=== PATIENT | female | born 1980 | race Caucasian/White ===

== ENCOUNTER → 2020-11-07 12:24 | Outpatient (CLI) | payer OTHER, SELFPAY ==
[2018-04-02 13:29] VITALS: BMI 26.8
[2020-11-07 13:15] LABS: hCG Titer Quant., Serum 115 mIU/mL (1-3)
== END ==
PROVIDERS: PCP Family Medicine; Referring Provider Obstetrics & Gynecology; Visit Provider Obstetrics & Gynecology
DX: N91.2 Amenorrhea, unspecified (principal)
CPT/HCPCS: 36415; 84702

== ENCOUNTER → 2020-11-09 12:32 | Outpatient (CLI) | payer OTHER, SELFPAY ==
[2018-04-02 13:29] VITALS: BMI 26.8
[2020-11-09 13:31] LABS: hCG Titer Quant., Serum 42 mIU/mL (1-3)
== END ==
PROVIDERS: PCP Family Medicine; Referring Provider Obstetrics & Gynecology; Visit Provider Obstetrics & Gynecology
DX: N91.2 Amenorrhea, unspecified (principal)
CPT/HCPCS: 36415; 84702

== ENCOUNTER → 2020-11-11 10:44 | Outpatient (CLI) | payer OTHER, SELFPAY ==
[2018-04-02 13:29] VITALS: BMI 26.8
[2020-11-11 11:27] LABS: hCG Titer Quant., Serum 18 mIU/mL (1-3)
== END ==
PROVIDERS: PCP Family Medicine; Referring Provider Obstetrics & Gynecology; Visit Provider Obstetrics & Gynecology
DX: O02.1 Missed abortion (principal)
CPT/HCPCS: 36415; 84702

== ENCOUNTER → 2022-07-11 | Outpatient (CLI) | payer OTHER, SELFPAY ==
[2022-07-11 11:16] LABS: Absolute Lymphocyte Count 1.35 X10^3/uL (0.83-4.51); Absolute Neutrophil Count 4.1 X10^3/uL (2.0-7.7); Basophil# 0.06 X10^3/uL; Eosinophil# 0.08 X10^3/uL; Eosinophils% 1.3 % (0-5); Hematocrit 41.2 % (37-47); Hemoglobin 13.2 g/dL (12.0-15.0); Lymphocyte # 1.35 X10^3/ul (0.83-4.51); Lymphocyte % 21.8 % (19-41); Mean Corpuscular Hgb 29.3 pg (27.0-32.0); Mean Corpuscular Volume 91.6 fL (81-99); Mean Platelet Vol. 9.8 fl (6.2-12.0); Monocyte# 0.54 X10^3/uL; Monocyte% 8.7 % (0-10); NRBC Flagged by Analyzer 0 % (0-5); Neutrophil # 4.14 X10^3/uL (2.7-7.7); Neutrophil % 66.9 % (47-70); Platelet Count 318 K/mm3 (150-450); RBC Distribution Width SD 44.1 fl (35.1-43.9); White Blood Count 6.2 K/mm3 (4.4-11.0)
[2022-07-11 11:49] LABS: Thyroid Stim Hormone (TSH) 3.59 uIU/mL (0.358-3.74)
== END | disposition home or self-care (01) ==
LOC: PAVLAB 10:47
PROVIDERS: PCP Family Medicine; Referring Provider Advanced Practice Midwife; Visit Provider Advanced Practice Midwife
DX: N92.1 Excessive and frequent menstruation with irregular cycle (principal)
CPT/HCPCS: 36415; 83036; 84443; 85025

== ENCOUNTER → 2022-07-16 | Outpatient (CLI) | payer OTHER, SELFPAY ==
--- NOTE | 2022-07-16 08:02 | US_ITS ---
STUDY: ULTRASOUND OF THE FEMALE PELVIS - COMPLETE REASON FOR EXAM: Female, 41 years old. Irregular menstrual bleeding LMP: July 16, 2022. TECHNIQUE: Transvaginal TECHNICAL QUALITY: Adequate. COMPARISON: None. FINDINGS: The uterus is anteverted and is in a midline position. The uterus measures 10.3 cm x 6.4 cm x 4.1 cm. There is a Nabothian cyst of the cervix. The endometrium measures 9.4 mm in thickness, and is hyperechoic. There are numerous small cysts in the endometrium. 2 uterine fibroids are seen. The larger measures 1.8 sign by 1.5 sign by 1.4 cm. This is pedunculated posteriorly. I.U.D. - The patient does not have an I.U.D. The right ovary is visualized. The right ovary measures 3.3 cm x 2.7 cm x 2.1 cm. There is no right ovarian cyst or ovarian mass. There is no visualized right adnexal mass or complex lesion. There is normal arterial and normal venous vascularity. The left ovary is visualized. The left ovary measures 4 cm x 3.6 x 2.8 cm. There is a 2.8 sided by 2.4 sign by 2.5 cm left ovarian cyst. There is no visualized left adnexal mass or complex lesion. There is normal arterial and normal venous vascularity. There is no fluid in the cul-de-sac. US/Transvaginal Non- IMPRESSION: Enlarged fibroid uterus. 2.8 cm x 2.4 cm by 2.5 cm left ovarian cyst. Electronically Signed: Jaron Epperson MD at 14:47 EDT ,
[2022-07-16 09:28] LABS: Cholesterol 180 mg/dL (200); High Density Lipoprotein 58 mg/dL; Triglycerides 125 mg/dL; Very Low Density Lipoprotein 25 mg/dL (5-40)
== END | disposition home or self-care (01) ==
PROVIDERS: PCP Family Medicine; Referring Provider Advanced Practice Midwife; Visit Provider Advanced Practice Midwife
DX: N92.1 Excessive and frequent menstruation with irregular cycle (principal)
CPT/HCPCS: 36415; 76830; 80061

== ENCOUNTER → 2022-08-13 | Outpatient (CLI) | payer OTHER, SELFPAY ==
--- NOTE | 2022-08-13 15:00 | EMB_PTH ---
PATIENT: YUMIKO COLON LOC: [facility] U#:[id number] AGE/SX: 41/F ROOM: RE08/13/[address]: Dr. Vivien Grajeda MD : 1980 BED: DIS: 08/13/2022 SPEC #: [id number] RECD: 08/13/22 16:41 STATUS: KATY REQ #: [id number] JIM: 08/13/22 15:[address]: Vivien Grajeda DEPT: SURGICAL PATHOLOGY RECD BY: Jody Chavez ENTERED: 08/14/22 07:54 SP TYPE: ENDOM BX/C OT DR: Dr. Juan Luis Thornton MD Tissues: Endometrium, NOS Procedures: Surgery Specimen Level IV HEADER OPERATION: Endometrial biopsy PRE-OP DIAGNOSIS: Abnormal uterine bleeding TISSUE SUBMITTED: Endometrial tissue MICROSCOPIC DIAGNOSIS Endometrial biopsy: Proliferative endometrium with focal glandular breakdown. SJ:iván 08/15/2022 MICROSCOPIC DESCRIPTION Slides are reviewed. GROSS DESCRIPTION Received is one container labeled with the patient's name and not further designated. The specimen consists of multiple irregular fragments of pink-werner soft tissue that in aggregate measure 1.5 x 1.0 x 0.1 cm. The specimen is totally submitted in one cassette. / AM:iván 08/14/2022 TC:5 CPT: 32583
== END | disposition home or self-care (01) ==
LOC: LABSPEC 16:48
PROVIDERS: PCP Family Medicine; Referring Provider Obstetrics & Gynecology; Visit Provider Obstetrics & Gynecology
DX: N93.9 Abnormal uterine and vaginal bleeding, unspecified (principal)
CPT/HCPCS: 88305

== ENCOUNTER → 2025-01-09 | Outpatient (CLI) | payer OTHER, SELFPAY ==
--- OUTSIDE RECORDS SUMMARY | 2024-12-03 17:08 | XMS RPT_ITS ---
Author Name Auto Generated Organization OHIP Care Team Providers Care Insurance Claims Adjuster Name Role Phone DONAVON LAWRENCE Attending Unavailable FURNESS, ABDIFATAH T Primary Care Unavailable FURNESS, ABDIFATAH T Attending Unavailable FURNESS, ABDIFATAH T Primary Care Unavailable PRABHA MATHIS Referring Unavailable FURNESS, ABDIFATAH T Primary Care Unavailable FURNESS, ABDIFATAH T Primary Care Unavailable NGUYENHAUSENHARJINDERPRABHA Attending Unavailable NAIMA JIANG Attending Unavailable FURNESS, ABDIFATAH T Referring Unavailable FURNESS, ABDIFATAH T Primary Care Unavailable NAIMA JIANG Referring Unavailable FURNESS, ABDIFATAH T Primary Care Unavailable PAULA BRANDT Referring Unavailable FURNESS, ABDIFATAH T Primary Care Unavailable PROBLEMS DATE TYPE CONDITION / CODE ATTENDING STATUS [facility] 12/03/2024 Admitting Diagnosis Migraine, unspecified, not intractable, without status migrainosus / G43.909(ICD-10) NA [facility] 12/03/2024 Admitting Diagnosis Chronic migraine with aura, intractable, without status migrainosus / G43.E19(ICD-10) [facility] 11/25/2024 Admitting Diagnosis Chronic migraine without aura, intractable, without status migrainosus / G43.719(ICD-10) [facility] 11/25/2024 Admitting Diagnosis Obstructive sleep apnea (adult) (pediatric) / G47.33(ICD-10) [facility] 11/25/2024 Admitting Diagnosis Hypersomnia, unspecified / G47.10(ICD-10) [facility] 11/25/2024 Admitting Diagnosis Reaction to severe stress, unspecified / F43.9(ICD-10) [facility] 06/27/2024 Active Migraine without aura and without status migrainosus, not intractable / G43.009(ICD-10) [facility] 05/22/2024 Active Vertigo / R42(ICD-10) PRABHA MATHIS [facility] 03/11/2023 Admitting Diagnosis Migraine without aura, not intractable, without status migrainosus / G43.009(ICD-10) [facility] 01/15/2024 Admitting Diagnosis Acute atopic conjunctivitis, bilateral / H10.13(ICD-10) [facility] 01/15/2024 Admitting Diagnosis Rash and other nonspecific skin eruption / R21(ICD-10) [facility] 01/15/2024 Admitting Diagnosis Rosacea, unspecified / L71.9(ICD-10) [facility] PROCEDURES No Procedure Records Found RESULTS XR EYE FOREIGN BODY Observed: 12/03/2024 5:08 PM Status: F Source: [facility] Interpreted By: Wayne Cai, STUDY: XR EYE FOREIGN BODY; ; 12/03/2024 5:10 pm INDICATION: Signs/Symptoms:MRI CLEARANCE. ,G43.909 Migraine, unspecified, not intractable, without status migrainosus COMPARISON: None. ACCESSION NUMBER(S): [id number] ORDERING CLINICIAN: PAULA BRANDT FINDINGS: No metallic foreign body is seen in the orbits. IMPRESSION: No metallic foreign body is seen in either orbit. MACRO: None Signed by: Robyn Cai 12/03/2024 5:28 PM Dictation workstation: [id number] MR BRAIN W AND WO IV CONTRAST Observed: 12/03/2024 4:38 PM Status: F Source: [facility] Interpreted By: Claudia Bunn, STUDY: MR BRAIN W AND WO IV CONTRAST; 12/03/2024 5:54 pm INDICATION: Signs/Symptoms:migraines. ,G43.E19 Chronic migraine with aura, intractable, without status migrainosus COMPARISON: None. ACCESSION NUMBER(S): [id number] ORDERING CLINICIAN: NAIMA JIANG TECHNIQUE: The brain was studied in the sagittal, axial and coronal planes utilizing FLAIR, T1 and T2 weighted images. Following intravenous injection of gadolinium contrast, T1 weighted fat suppressed multiplanar images were also performed. FINDINGS: There is a normal-size ventricular system. There is no evidence of intracranial mass or extra-axial collection. The skull base, paranasal sinuses and orbital structures are unremarkable. Diffusion weighted images and associated ADC maps of the brain were unremarkable. There is no evidence of diffusion restriction to suggest the presence of acute infarction. Gradient echo T2 weighted images fail to demonstrate hemosiderin deposition or other evidence of hemorrhage. Following intravenous injection of there is no abnormal enhancement. There is normal contrast opacification of the dural venous sinuses. IMPRESSION: There is no evidence of mass, infarction or hemorrhage. MACRO: none Signed by: Carroll Bunn 12/04/2024 1:15 PM Dictation workstation: [id number] COMP METAB 2000 PNL SERPL Collected: 8:51 AM Status: F Source: [facility] Order Comment: Specimen Type : BLOOD SPECIMEN Ordering Facility: [facility] Address: [address] [place] [address] TYPE CODE TESTS RESULT OUT OF RANGE REFERENCE UNITS LAB 2885-2(LOINC) Prot SerPl-mCnc 6.8 6.3-8.0 g/dL LAB 1751-7(LOINC) Albumin SerPl-mCnc 4.0 3.9-4.9 g/dL LAB 05334-6(LOINC) Calcium SerPl-mCnc 9.0 8.5-10.2 mg/dL LAB 1975-2(LOINC) Bilirub SerPl-mCnc 0.4 0.2-1.3 mg/dL LAB 6768-6(LOINC) ALP SerPl-cCnc 61 34-123 U/L LAB 20859-8(LOINC) AST SerPl w P-5'-P-cCnc 15 13-35 U/L LAB 1743-4(INC) ALT SerPl w P-5'-P-cCnc 11 7-38 U/L LAB 2345-7(INC) Glucose SerPl-mCnc 91 74-99 mg/dL Result Comment: The [place] [employer] (ADA) provides guidance for cutoff values for fasting glucose and random glucose. The ADA defines fasting as no caloric intake for at least 8 hours. Fasting plasma glucose results between 100 to 125 mg/dL indicate increased risk for diabetes (prediabetes). Fasting plasma glucose results greater than or equal to 126 mg/dL meet the criteria for diagnosis of diabetes. In the absence of unequivocal hyperglycemia, results should be confirmed by repeat testing. In a patient with classic symptoms of hyperglycemia or hyperglycemic crisis, random plasma glucose results greater than or equal to 200 mg/dL meet the criteria for diagnosis of diabetes. Reference: Standards of Medical Care in Diabetes 2016, [place] [employer]. Diabetes Care. 2016.39(Suppl 1). LAB 3094-0(LOINC) BUN SerPl-mCnc 10 7-21 mg/ dL LAB 2160-0(LOINC) Creat SerPl-mCnc 0.75 0.58-0.96 mg/dL LAB 2951-2(LOINC) Sodium SerPl-sCnc 140 136-144 mmol/L LAB 2823-3(LOINC) Potassium SerPl-sCnc 4.4 3.7-5.1 mmol/L LAB 2075-0(LOINC) Chloride SerPl-sCnc 106 98-107 mmol/L LAB 2028-9(LOINC) CO2 SerPl-sCnc 23 22-30 mmo l/L LAB 98153-7(LOINC) Anion Gap SerPl-sCnc 11 8-15 mmol/L LAB 27771-4(LOINC) Creatinine + eGFR Pnl SerPlBld 101 >=60 mL/min/1. 73m??? Result Comment: Estimated Gl omerular Filtration Rate (eGFR) is calculated using the 2020 CKD-EPI creatinine equation. This equation utilizes serum creatinine, sex, and age as parameters. The creatinine assay has traceable calibration to isotope dilution-mass spectrometry. Refer to KDIGO guidelines for clinical interpretation. In patients with unstable renal function, e.g. those with acute kidney injury, the eGFR may not accurately reflect actual GFR. Performed By: #### [id number] # ### [facility] CLIA [id number] [address] [place] [address] STATES OF [facility] CBC W AUTO DIFF BLD Collected: 06/27/2024 8:[address] atus: F Source: [facility] Order Comment: Specimen Type : BLOOD SPECIMEN Ordering Facility: [facility] Address: [address] [place] [address] TYPE CODE TESTS RESULT OUT OF RANGE REFERENCE UNITS LAB 6690-2(LOINC) WBC # Bld Auto 7.48 3.70-11.00 k/uL LAB 789-8(LOINC) RBC # Bld Auto 4.35 3.90-5.20 m/ uL LAB 718-7(LOINC) Hgb Bld-mCnc 11.9 11.5-15.5 g/dL LAB 4544-3(LOINC) Hct VFr Bld Auto 38.4 36.0-46.0 % LAB 787-2(LOINC) MCV RBC Auto 88.3 80.0-100.0 fL LAB 785-6(LOINC) MCH RBC Qn Auto 27.4 26.0-34.0 p g LAB 786-4(LOINC) MCHC RBC Auto-mCnc 31.0 30.5-36.0 g/dL LAB 15283-4(LOINC) RDW RBC-Rto 14.1 11.5-15.0 % LAB 777-3(LOINC) Platelet # Bld Auto 345 150-400 k/uL LAB 93444-9(LOINC) PMV Bld Auto 10.0 9.0-12.7 fL LAB 770-8(LOINC) Neutrophils/leuk NFr Bld Auto 62.4 % LAB 751-8(LOINC) Neutrophils # Bl d Auto 4.67 1.45-7.50 k/uL LAB 736-9(LOINC) Lymphocytes/leuk NFr Bld Auto 24.5 % LAB 731-0(LOINC) Lymphocytes # Bl d Auto 1.83 1.00-4.00 k/uL LAB 5905-5(LOINC) Monocytes/leuk NFr Bld Auto 10.8 % LAB 742-7(LOINC) Monocytes # Bld Auto 0.81 <0.87 k/uL LAB 713-8(LOINC) Eosinophil/leuk NFr Bld Auto 1.9 % LAB 711-2(LOINC) Eosinophil # Bld Auto 0.14 <0.46 k/uL LAB 706-2(LOINC) Basophils/leuk NFr Bld Auto 0.4 % LAB 704-7(LOINC) Basophils # Bld Auto 0.03 <0.11 k/uL LAB 69797-2(LOINC) Imm Granulocytes/leuk NFr Bld Auto 0.0 % LAB 67064-9(LOINC) Imm Granulocytes # Bld Auto <0.03 <0.10 k/uL LAB 69814-6(LOINC) nRBC/100 WBC Bld-Rto LAB 771-6(LOINC) nRBC # Bld Auto LAB 76967-5(LOINC) Differential method Bld Auto Performed By: #### [id number] # ### [facility] CLIA [id number] [address] [place] [address] PROGRESS Observed: 05/22/2024 11:30 AM Status: COMPLETED Source: [facility] HNO ID: [id number] Author: PRABHA MATHIS APRN.MARKER ASSEMBLER Service: ? Author Type: Nurse Practitioner Type: Progress Notes Filed: 05/22/2024 15:31 Note Text: [facility] Follow-up Visit Follow-up note This visit was conducted via virtual platform. I have communicated my name and active licensure. The patient's identity and physical location were verified at the time of this visit. Either the patient or their legal senior account representative has been informed of the risks and benefits of -- and alternatives to -- treatment through a remote evaluation and consents to proceed with the evaluation remotely. May 22, 2024 HPI: Ms. Colon presents today for a follow-up visit. Per her previous visit on 10/23/23: R42 Vertigo (primary encounter diagnosis) G43.009 Migraine without aura and without status migrainosus, not intractable Comment: Pt previously seen for return of vertigo in August (with prior episode occurring in 04/2021). Symptoms included dizziness and nausea which improved with use of Antivert. Symptoms suspected to be secondary to migraine vs acute peripheral process. Given improvement of symptoms at time of previous episodes with use of gabapentin, gabapentin was restarted at a dose of 100mg BID. Additionally, Imitrex was discontinued d/t decreased efficacy and instead started Maxalt 10mg at onset of migraine. At time of appointment today she reports that things have progressively improved, however, have seemingly plateaued over the past week and a half. She does report a recent 3-day migraine (known trigger). She continues to note ongoing mild dizziness which is different than episode of vertigo (previously felt to be secondary to gabapentin). At this time we will have pt discontinue gabapentin as she is currently only taking once daily and determine if residual symptoms resolved. Should vertigo return can consider restarting gabapentin vs alternative medication such as Cymbalta (addressing both migraine and dizziness), however, should all symptoms improve may consider discontinuation of gabapentin and initiation of alternative medication for treatment of migraines (discussed options such as propranolol, TCA). Note, pt has taken TPX and Amerge in the past without successful relief of symptoms (patient also with history of renal stone). She has not yet used Maxalt and will trial once off gabapentin. Should Maxalt be ineffective would consider use of Nurtec. She will notify the office in roughly 1-2 weeks regarding medication and symptoms. Since October she has been doing well. Tried taking Cymbalta; initially felt great but then after a few days felt worse. Can still happen a couple of times a day. Very brief; on a couple seconds. Driving and bumps can contribute to symptoms. Does not affect driving. Twice since October felt like she was getting dizzy. Tried taking meclizine and Nurtec and then went to bed. Did not feel dizzy the next morning. Not sure how well [employer] is working. Headache every day for a month in March. April was not great either. [employer] can take six hours to work. Not sure if at that point it is the medication or headache getting better. With Imitrex was able to tx GONG with 100mg. Feels Imitrex works better than Nurtec. Has not tried BP medication for headaches. BP typically runs low and has been diverted from giving blood. Hx of renal stone. Preventative: Topamax (also hx renal stone), gabapentin, Cymbalta, BP low Abortive: Maxalt, Imitrex, Amerge, Nurtec PAST MEDICAL HISTORY Diagnosis Date Dizziness and giddiness 03/27/2021 Fibroid Irregular menses Kidney stones Migraines Other specified hypothyroidism 02/25/2017 Ovarian cyst PAST SURGICAL HISTORY Procedure Laterality Date EXTRACTION ERUPTED TOOTH removal of all 4 wisdom teeth PAST SURGICAL HISTORY OF 03/13/2017 LAPAROSCOPY WITH EXCISION OF ENDOMETRIAL LESIONS PELVIS (Left) PAST SURGICAL HISTORY OF 03/13/2017 LAPAROSCOPIC MYOMECTOMY 1 TO 4 MYOMAS Current Outpatient Medications on File Prior to Visit Medication Sig DULoxetine (CYMBALTA) 20 mg capsule Take 1 capsule by mouth once daily. gabapentin (NEURONTIN) 100 mg capsule Take 1 capsule by mouth two times a day for 90 days. meclizine (ANTIVERT) 25 mg chewable tablet(s) Take 1 tablet by mouth every 8 hours as needed for dizziness. ondansetron (ZOFRAN) 8 mg tablet Take 1 tablet by mouth every 8 hours as needed. (Patient not taking: Reported on 03/23/2021 ) letrozole (FEMARA) 2.5 mg tablet Take 2 tablets by mouth once daily for 5 days. Menstrual cycle day 3-7 levothyroxine (SYNTHROID) 50 mcg tablet Take 1 tablet by mouth once daily. (Patient not taking: Reported on 03/23/2021 ) Dniwwta-Rbjpigdrfgrdo-Bvmffheq (EXCEDRIN MIGRAINE) 250-250-65 mg per tablet Take 1 tablet by mouth every 6 hours as needed. MULTIVITAMIN ORAL Take 1 tablet by mouth once daily. (Patient not taking: Reported on 03/23/2021 ) MAGNESIUM ORAL Take 1 tablet by mouth once daily. (Patient not taking: Reported on 03/23/2021 ) No current facility-administered medications on file prior to visit. Social History Tobacco Use Smoking status: Never Smokeless tobacco: Never Vaping Use Vaping status: Never Used Substance Use Topics Alcohol use: Not Currently Drug use: No ALLERGIES Allergen Reactions Chlorhexidine Hcl Itching mouth numb Percocet [Oxycodone* Vomiting Vicodin [Hydrocodon* Other: See Comments headache Review of Systems: See HPI. Physical Exam: There were no vitals filed for this visit. Patient is alert and in no distress. Dress is appropriate. Mood is appropriate Breathing appears regular and unstressed Neurologic examination: Exam is observational at best. General Appearance: well appearing, in no acute distress Mental status evaluation during the interview and examination showed normal level of consciousness, orientation, language, memory, praxis, and higher intellectual function Affect: Normal Speech: normal Cranial Nerves: III, IV, -EOMI: full. VII-face is symmetric without evidence of weakness. VIII-hearing intact. XII-tongue protrudes midline with normal movements. Labs/studies: MRI Brain WO/W 03/28/21: 1. Normal MRI brain. 2. BRAIN: Severity: None. Volume decrease: None. New plaques: None. Enhancement: None. 3. No acute intracranial disease. Assessment/Plan: R42 Vertigo (primary encounter diagnosis) G43.009 Migraine without aura and without status migrainosus, not intractable Comment: Pt with history of migraine and associated vertigo. She has tried multiple past preventative medications and had since started Cymbalta since previous appointment. Additionally, she has tried multiple past abortive medications including Imitrex and Maxalt and in the interim began Nurtec. She has since stopped Cymbalta d/t SE but continues to utilize Nurtec prn. She is uncertain if medication is effective. Of note, she also continues to utilize Imitrex prn. Since her previous appointment she experienced two months of increased headaches. She would like to try alternative preventative medication. Discussed options including BB's, alternative antidepressant, Nurtec as a preventative rather than an abortive, or an injectable/Qulipta. Will proceed with plan below. -Begin sertraline 25mg once daily as headache preventative. Can consider using Nurtec as migraine preventative vs injectable vs Qulipta. -Discontinue Imitrex and instead begin Amerge 1mg as needed at onset of migraine. If migraine persists can take a second tablet after four hours. -Will begin diclofenac 75mg once every 12 hours as needed for headache. Should not be taken in combination with other NSAIDS. Follow up in 8 weeks or sooner should new or changing symptoms occur. Preventative: Topamax (also hx renal stone), gabapentin, Cymbalta, BP low- defer BB, sertraline Abortive: Maxalt, Imitrex, Amerge, Nurtec No orders found for this visit on 05/22/24. Prabha Mathis, TANYA.MARKER ASSEMBLER I spent a total of 35 minutes on the date of the service which included preparing to see the patient, [id number] patient care, completing clinical documentation, obtaining and/or reviewing separately obtained history, performing a medically appropriate examination, counseling and educating the patient/family/caregiver, and ordering medications, tests, or procedures. ALLERGIES DATE TYPE / CODE NAME / CODE REACTION SEVERITY SOURCE 02/25/2017 DRUG INGREDI/65252 1003(SNOMED CT) CHLORHEXIDINE HCL ITCHING [facility] 02/25/2017 DRUG INGREDI/49439 1003(SNOMED CT) CHLORHEXIDINE HCL Itching [facility] 01/22/2017 DRUG/99338584 3(SNOMED CT) OXYCODONE-ACETAMINOPH EN Vomiting [facility] 01/22/2017 DRUG/08067694 3(SNOMED CT) HYDROCODONE-ACETAMINO PHEN OTHER: SEE C [facility] ENCOUNTERS ADMIT/DISCHARGE ACCOUNT NUMBER ADMITTING ENCOUNTER CLASS LOCATION SOURCE 12/03/2024/ 5 [id number] Ambulatory Building:[facility] R [facility] 12/03/2024/ 5 [id number] Ambulatory Building:[facility] 11/25/2024/ 5 [id number] Ambulatory Building:[facility] [id number] [facility] 10/09/2024/ 5 [id number] Ambulatory Building:[facility] [address] [facility] 06/27/2024/ 5 [id number] [facility] 05/22/2024/ 5 [id number] [facility] 01/15/2024/ 4 [id number] Ambulatory Building: [address] [facility] PAYERS ENCOUNTER GUARANTOR PAYER SUBSCRIBER SOURCE 12/03/2024 YUMIKO ADAMEB: [address] [address]Yqj: () Primary Insurance:MEDICAL [employer] [facility]HBCS Number: [id number] ve Date:2021-04-15 YUMIKO ADAMEB: [id number] [address] [address]Fzo: () [facility] 12/03/2024 YUMIKO ADAMEB: [address] [place] [address]Onk: () Primary Insurance:MEDICAL [employer] [facility]HBCS Number: [id number] ve Date:2021-04-15 YUMIKO ADAMEB: [id number] [place] [address]Mhz: (HP) [facility] 11/25/2024 YUMIKO ADAMEB: [address] [place] [address]Rak: () Primary Insurance:MEDICAL [employer] [facility] Med[facility]ay Number: [id number] ve Date:2021-04-15 YUMIKO ADAMEB: [id number] [address] [place] [address]Pwy: (HP) [facility] 10/09/2024 YUMIKO ADAMEB: [address] [place] [address]Xhf: () Primary Insurance:MEDICAL [employer] [facility] Number: [id number] ve Date:2021-04-15 YUMIKO Jhonny ADAMEB: [id number] [address] [address]Uvh: () [facility] 06/27/2024 Primary Insurance:MMO [employer] PPOPolicy Number: [id number] ve Date:2410-97-57Bvej Name:Makayla CALDERON Jhonny ADAMEB: [id number] [address] [place] [address] [facility] 05/22/2024 Primary Insurance:MMO SUPER[employer] PPOPolicy Number: [id number] ve Date:6418-22-78Shps Name:Makayla Barry MAMIE: [id number] [address] [place] [address] [facility] 01/15/2024 YUMIKO Jhonny ADAMEB: [address] [address]Ubj: () Primary Insurance:[facility] Number: [id number] ve Date:2021-04-15 YUMIKO Jhonny ADAMEB: [id number] [address] [place] [address]Ipx: () [facility]
--- NOTE | 2025-01-09 10:20 | US_ITS ---
PROCEDURE: PELVIC W/ TRANSVAGINAL 01/09/2025 REASON FOR EXAM: MENORRHAGIA 1st day of last menstrual period was 12/14/2024 TECHNIQUE: Procedure Code: [id number] Modality: US Procedure: PELVIC W/ TRANSVAGINAL COMPARISON: Pelvic ultrasound dated 07/16/2022 FINDINGS: Measurements: Uterus: 12.7 x 8.9 x 5.4 with a volume of 319 mL Endometrial Thickness: 6 Right Ovary: 5.1 x 4.8 x 4.0 with a volume of 52 mL. Left Ovary: 3.5 x 2.9 x 2.9 with a volume of 15 mL. The study was somewhat limited due to bowel gas obscuring portions of the uterus and ovaries. Uterus: The myometrium of the uterus is heterogeneous in echotexture. The uterus is anteverted. There are 3 hypoechoic masses within the myometrium measuring 4.6 x 4.5 x 3.9 cm, 4.9 x 4.3 x 3.6 cm, and 2.5 x 2.5 x 1.6 cm. These are most compatible with uterine fibroids. Nabothian cysts are seen within the cervix. Endometrium: The endometrial stripe is hyperechoic. Right ovary: 2 benign-appearing cysts are seen measuring 3.1 x 3.2 x 2.8 cm and 3.5 x 3.0 x 2.5 cm. The larger cyst appears to be somewhat exophytic. Blood flow is seen within the ovary. Left ovary: Benign-appearing cyst is seen measuring 3.0 x 2.3 x 1.6 cm. Blood flow is seen within the ovary. Other: The urinary bladder prevoid measures 10.4 x 6.1 x 10.5 cm. Prevoid urinary bladder volume is 347 mL. Bladder wall is smooth. There are no filling defects within the urinary bladder. Small amount of free fluid is seen within the cul-de-sac. US/Pelvic w/ Transvaginal IMPRESSION: Uterine fibroids. Bilateral ovarian cysts. Reading Location: [id number]
== END | disposition home or self-care (01) ==
LOC: US 10:19
PROVIDERS: PCP Family Medicine; Referring Provider Obstetrics & Gynecology; Visit Provider Obstetrics & Gynecology
DX: N92.1 Excessive and frequent menstruation with irregular cycle (principal)
CPT/HCPCS: 76830; 76856